=== PATIENT | male | born 1960 | race Caucasian/White ===

== ENCOUNTER 2018-04-02 07:26 | Day surgery (SDC) | payer OTHER ==
[2018-03-31 19:40] VITALS: BMI 35.6
[2018-04-02] MEDS ORDERED: DEXAMETHASONE SOD PHOSPHATE/PF 10 MG/ML SDV ONE (08:55)
[2018-04-02] MEDS ORDERED: BUPIVACAINE HCL/PF 0.5% (5MG/ML) 10 ML VIAL ONE (08:55)
[2018-04-02] MEDS ORDERED: MIDAZOLAM HCL 2 MG/2 ML SINGLE DOSE VIAL ONE ×4 (08:56→10:42)
[2018-04-02] MEDS ORDERED: PROPOFOL 20 ML ONE (09:44)
--- NOTE | 2018-04-02 10:25 | HP ---
[facility] - Chief Complaint Chief Complaint: left shoulder pain - Past Medical History Allergies/Adverse Reactions: Allergies Allergy/AdvReac Type Severity Reaction Status Date / Time meperidine HCl [From Demerol] Allergy Severe Vomiting Verified 04/02/18 07:49 Penicillins AdvReac Severe Verified 04/02/18 07:49 - Current Medications Current Medications: Home Medications Medication Instructions Recorded Esomeprazole Mag Trihydrate 40 mg PO HS #0 capsule.ec 11/27/12 [Nexium] Metformin HCl [Glucophage] 500 mg PO BID 11/05/13 Valsartan/Hydrochlorothiazide 1 combo PO HS 11/12/14 [Diovan Hct 160-25 mg Tablet] Atorvastatin Ca [Lipitor] 40 mg PO DAILY 01/30/18 Aspirin [Aspirin EC] 81 mg PO DAILY 03/31/18 Empagliflozin [Jardiance] 25 mg PO DAILY 03/31/18 Isosorbide Mononitrate [Imdur -] 30 mg PO DAILY 03/31/18 Metoprolol Succinate [Toprol Xl] 50 mg PO DAILY 03/31/18 Prasugrel HCl [Effient] 10 mg PO DAILY 03/31/18 Satellite Physical Exam - Physical Examination Vital Signs: Vital Signs Period Temp Pulse Resp BP Sys/Ospina Pulse Ox Last 24 Hr 98.1 F 64 18 116/68 95 General Appearance: Well Nourished, Well Developed, Alert & Oriented x3 ENT: Clear Lung: Normal air movement Heart: Regular rate & rhythm Extremities: Other (left shoulder- + ttp ,decr rom, + empty can, + neer, + gonzalez,nvi MRI + rct) Neurological: Intact, Alert, Oriented Satellite Impression/Plan - Impression/Plan Impression: left shoulder rct Operative Procedure: left shoulder arthroscopy with LAURA DYER Date to be Performed: 04/02/18
[2018-04-02] MEDS ORDERED: ceFAZolin SODIUM 1 GM VIAL IVPB ONE (10:37)
[2018-04-02] MEDS ORDERED: ceFAZolin SODIUM 1 GM VIAL ONE (10:45)
[2018-04-02] MEDS ORDERED: oxyCODONE HCL 5 MG TABLET PO PRN (10:49)
[2018-04-02] MEDS ORDERED: ONDANSETRON 4 MG/2 ML VIAL IVPUSH PRN (10:49)
[2018-04-02] MEDS ORDERED: DEXAMETHASONE SOD PHOSPHATE 4 MG/1 ML VIAL ONE (10:58)
[2018-04-02] MEDS ORDERED: LACTATED RINGERS SOLUTION 1,000 ML IV SCH (11:00)
[2018-04-02] MEDS ORDERED: hydrALAZINE HCL 20 MG/ML VIAL ONE (11:04)
--- NOTE | 2018-04-02 11:54 | OP ---
Operative Note - Note: Operative Date: 04/02/18 Pre-Operative Diagnosis: L RC TEAR Operation: L RC REPAIR Post-Operative Diagnosis: Same as Pre-op Surgeon: Med Cradona Hoop Bending Machine Operator: Gerard Berg (AND DR PORRAS) Anesthesia: General, Local Estimated Blood Loss (mls): 0 Operative Report Dictated: Yes
--- NOTE | 2018-04-02 12:57 | SPEC ---
DATE OF OPERATION: 04/02/2018 PREOPERATIVE DIAGNOSIS: Left rotator cuff tear. POSTOPERATIVE DIAGNOSIS: Left rotator cuff tear. PROCEDURE: Arthroscopy, left shoulder with subacromial decompression and left rotator cuff repair with SpeedBridge. SURGICAL ATTENDING: Med Cardona MD, Manoj Durant MD ASSOCIATE FINANCIAL PLANNER: IVAN Mitchell ANESTHESIA: Regional and general. CLOSURE: A SpeedBridge for rotator cuff and 3-0 nylon for skin. ESTIMATED BLOOD LOSS: Negligible. COMPLICATIONS: None. CONDITION: To the recovery room in stable condition. DESCRIPTION OF PROCEDURE: The patient was taken to the operating room on April 02, 2018. General and regional anesthesia was administered by the anesthesiologist. IV Kefzol was administered prophylactically prior to the case. The patient was placed in the beach chair position with all prominences well padded. The left shoulder area was prepped and draped in the usual sterile fashion. First, a diagnostic arthroscopy of the glenohumeral joint was made. Posterior portal was made 2 fingerbreadths below the acromion with a 15 blade followed by a blunt trocar. Circumferential exam of the glenohumeral joint revealed the following: Intact labrum circumferentially, intact glenoid and humeral head articular cartilage, intact biceps and biceps anchor, intact subscapularis through its insertion. Looking superiorly, there was a large rotator cuff tear. The fluid was drained from the shoulder, and the trocar was removed. The posterior trocar was redirected in the subacromial space. An accessory lateral and anterior portal were made with a 15 blade followed by a blunt trocar. The lateral portal was used as the working portal. Through this portal, an ArthroCare device was applied. This was used to debride the soft tissue in the subacromial aspect. The coracoacromial ligament was identified and detached off the anterior acromion and was visualized to drop inferiorly and was further debrided. The bone on the undersurface of the acromion was burred to the appropriate level giving appropriate height for the rotator cuff beneath. Looking inferiorly, there was a large rotator cuff tear, soft tissue encasing the rotator cuff, and the deltoid recess was debrided using ArthroCare device and the shaver. The bed on the greater tuberosity was burred to give a good bed for the double row SpeedBridge repair. A grasper was used to ensure that the rotator cuff was able to be reduced sufficiently to the greater tuberosity. The rotator cuff was freed on the bursal and the articular surface to allow more excursion of the tendon. Two anchors preloaded with FiberTape suture were placed on the articular margin, one more anteriorly, one more posteriorly. They were shuttled through the anterior portal with a grasper. Each limb was individually passed through the rotator cuff, two anteriorly and two posteriorly. One anterior limb and one posterior limb was delivered through the lateral portal. They were placed through the eyelet hole of the more lateral anchor, which was then malleted into place much more laterally, reducing the rotator cuff to the greater tuberosity. The swivel was then screwed into place. The sutures were then cut flush with the bone. Next, one anterior and one posterior limb that was remaining were shuttled from the anterior to the lateral portal. The sutures were placed through the eyelet hole of the anterior anchor, which was malleted on the anterior aspect of the greater tuberosity. After tensioning it, it was deployed the entire way and then screwed home giving an excellent reduction to the anterior portion of the rotator cuff. After the sutures were cut, the rotator cuff was probed and found to have good stability with excellent matting down of the rotator cuff to the greater tuberosity. The shoulder was taken through the range of motion and found to have good clearance on the undersurface of the acromion with good, solid repair. The shoulder was drained of the fluid. The portals were closed with 3-0 nylon suture. A sterile pressure dressing followed by a shoulder immobilizer was applied. The patient was awoken from anesthesia and transferred to recovery room in stable condition. No complications. Estimated blood loss negligible. Juliocesar FALLON/[id number]
[2018-04-02 15:29] VITALS: BP 110/60; PULSE 73; TEMP 98
--- NOTE | 2018-04-03 11:23 | PATH ---
Surgical Pathology Report Patient Name: ADELA VIDAL [facility]. Rec. #: [id number] /Age/Gender: 1960 (Age: 58) / M Account: [id number] Location: [facility] SURGICAL Taken: 04/02/2018 Received: 04/02/2018 Reported: 04/03/2018 Physicians: Juliocesar Lora M.D. Specimen(s) Received LEFT SHOULDER SHAVINGS Clinical History Left shoulder tear Final Diagnosis SHOULDER SHAVINGS, LEFT, ARTHROSCOPY: FRAGMENTS OF BENIGN CARTILAGE, DENSE FIBROCONNECTIVE TISSUE, ADIPOSE TISSUE, BONE, AND SKELETAL MUSCLE. Electronically Signed Maria Fernanda Rosenthal M.D. Gross Description Received in formalin, labeled "left shoulder shaving," is a 4.5 x 4.0 x 0.3 cm. aggregate of mcgovern-yellow soft tissue fragments. A direct sales representative portion is submitted in one cassette. /04/02/2018 saudi04/02/2018
== END 2018-04-02 13:15 | disposition home or self-care (01) ==
LOC: JASU-SURG 07:26
PROVIDERS: ATTEND Orthopaedic Surgery
PROC: 0RNK4ZZ Release Left Shoulder Joint, Percutaneous Endoscopic Approach (ICD-10-PCS; principal; 2018-04-02 10:00)
PROC: 0LQ24ZZ Repair Left Shoulder Tendon, Percutaneous Endoscopic Approach (ICD-10-PCS; 2018-04-02 10:00)
DX: M75.102 Unspecified rotator cuff tear or rupture of left shoulder, not specified as traumatic (principal)
CPT/HCPCS: 82962; 88304-TC; 94760

== ENCOUNTER → 2019-10-07 | Day surgery (SDC) | payer OTHER ==
[2019-10-06 10:04] VITALS: BMI 34.0
[~2019-10-07] MED LIST: DEXAMETHASONE SOD PHOSPHATE/PF 10 MG/ML SDV ONE; DEXMEDETOMIDINE HCL 200 MCG/2 ML IVPB ONE; MIDAZOLAM HCL 2 MG/2 ML SINGLE DOSE VIAL ONE; PROPOFOL 20 ML ONE; ROPIVACAINE HCL 0.5% 30ML VIAL ONE; SODIUM CHLORIDE 0.9% P/F 10 ML VIAL IJ ONE; ceFAZolin 2 GRAM PREMIX BAG IVPB ONE; ceFAZolin SODIUM 1 GM VIAL ONE
[2019-10-07 06:54] VITALS: BP 111/70; PULSE 60; TEMP 97.7
--- NOTE | 2019-10-07 07:41 | HP ---
[facility] - Chief Complaint Chief Complaint: left shoulder pain - Past Medical History Allergies/Adverse Reactions: Allergies Allergy/AdvReac Type Severity Reaction Status Date / Time meperidine HCl [From Demerol] Allergy Severe Vomiting Verified 04/02/18 07:49 Penicillins AdvReac Severe Verified 04/02/18 07:49 - Current Medications Current Medications: Home Medications Medication Instructions Recorded Metformin HCl [Glucophage] 500 mg PO BID 11/05/13 Valsartan/Hydrochlorothiazide 1 combo PO HS 11/12/14 [Diovan Hct 160-25 mg Tablet] Atorvastatin Ca [Lipitor] 40 mg PO DAILY 01/30/18 Aspirin [Aspirin EC] 81 mg PO DAILY 03/31/18 Empagliflozin [Jardiance] 25 mg PO DAILY 03/31/18 Isosorbide Mononitrate [Imdur -] 30 mg PO DAILY 03/31/18 Metoprolol Succinate [Toprol Xl] 50 mg PO DAILY 03/31/18 Prasugrel HCl [Effient] 10 mg PO DAILY 03/31/18 Esomeprazole Mag Trihydrate 40 mg PO DAILY 10/06/19 [Nexium] Ezetimibe [Zetia] 10 mg PO DAILY 10/06/19 Losartan Potassium 12.5 mg PO DAILY 10/06/19 Nitroglycerin 0.4 mg SL PRN PRN 10/06/19 Ticagrelor [Brilinta] 90 mg PO BID 10/06/19 Satellite Physical Exam - Physical Examination Vital Signs: Vital Signs Period Temp Pulse Resp BP Sys/Ospina Pulse Ox Last 24 Hr 97.7 F-97.7 F 60-60 20-20 111-111/70-70 97 General Appearance: Well Nourished, Well Developed, Alert & Oriented x3 ENT: Clear Lung: Normal air movement Extremities: Other (left shoulder- + ttp ,decr rom, + empty can, nvi, MRI shows re-tear RC) Neurological: Intact, Alert, Oriented Satellite Impression/Plan - Impression/Plan Impression: left shoulder rct Operative Procedure: left shoulder arthroscopy RCR, removal of hardware Date to be Performed: 10/07/19
== END | disposition home or self-care (01) ==
LOC: JASU-SURG 06:04
PROVIDERS: ATTEND Orthopaedic Surgery
DX: Z53.8 Procedure and treatment not carried out for other reasons (principal)
CPT/HCPCS: 82962

== ENCOUNTER 2020-04-06 07:19 | Day surgery (SDC) | payer OTHER ==
[2020-04-05 11:43] VITALS: BMI 31.9
[2020-04-06] MEDS ORDERED: MIDAZOLAM HCL 2 MG/2 ML SINGLE DOSE VIAL ONE ×2 (09:52→10:32)
[2020-04-06] MEDS ORDERED: GLYCOPYRROLATE 0.2 MG/1 ML VIAL ONE (09:53)
[2020-04-06] MEDS ORDERED: ceFAZolin 2 GRAM PREMIX BAG IVPB ONE (10:45)
[2020-04-06] MEDS ORDERED: METOPROLOL TARTRATE 5 MG/5 ML VIAL ONE (11:01)
[2020-04-06] MEDS ORDERED: ceFAZolin SODIUM 1 GM VIAL ONE ×2 (11:04)
[2020-04-06] MEDS ORDERED: ONDANSETRON 4 MG/2 ML VIAL IVPUSH PRN (11:23)
[2020-04-06] MEDS ORDERED: oxyCODONE HCL 5 MG TABLET PO PRN (11:23)
[2020-04-06] MEDS ORDERED: LACTATED RINGERS SOLUTION 1,000 ML IV SCH (11:30)
[2020-04-06 13:39] VITALS: BP 122/79; PULSE 78; TEMP 97.7
== END 2020-04-06 13:39 | disposition home or self-care (01) ==
LOC: FASU 07:19
PROVIDERS: ATTEND Orthopaedic Surgery
PROC: 0RBK4ZZ Excision of Left Shoulder Joint, Percutaneous Endoscopic Approach (ICD-10-PCS; 2020-04-06)
PROC: 0RCK4ZZ Extirpation of Matter from Left Shoulder Joint, Percutaneous Endoscopic Approach (ICD-10-PCS; 2020-04-06)
PROC: 0LQ24ZZ Repair Left Shoulder Tendon, Percutaneous Endoscopic Approach (ICD-10-PCS; principal; 2020-04-06 10:00)
PROC: 0RHK44Z Insertion of Internal Fixation Device into Left Shoulder Joint, Percutaneous Endoscopic Approach (ICD-10-PCS; 2020-04-06 10:00)
DX: M75.102 Unspecified rotator cuff tear or rupture of left shoulder, not specified as traumatic (principal); T84.89XA Other specified complication of internal orthopedic prosthetic devices, implants and grafts, initial encounter; Y79.1 Therapeutic (nonsurgical) and rehabilitative orthopedic devices associated with adverse incidents; Y92.9 Unspecified place or not applicable
CPT/HCPCS: 82962; 88300-TC; 94760

== ENCOUNTER 2021-09-06 04:24 | Day surgery (SDC) | payer OTHER ==
[2021-09-05 17:59] VITALS: BMI 29.6
[2021-09-06] MEDS ORDERED: PROPOFOL 20 ML ONE ×2 (10:00→10:28)
[2021-09-06] MEDS ORDERED: DEXAMETHASONE SOD PHOSPHATE 4 MG/1 ML VIAL ONE (10:26)
[2021-09-06] MEDS ORDERED: KETOROLAC TROMETHAMINE 30 MG/1 ML VIAL ONE (10:26)
[2021-09-06] MEDS ORDERED: LIDOCAINE HCL 2% 100 MG/5 ML DISP.SYRIN ONE (10:26)
[2021-09-06] MEDS ORDERED: ROPIVACAINE HCL 0.5% 30ML VIAL ONE (10:28)
[2021-09-06] MEDS ORDERED: MIDAZOLAM HCL 2 MG/2 ML SINGLE DOSE VIAL ONE ×2 (10:28)
[2021-09-06] MEDS ORDERED: ceFAZolin SODIUM 1 GM VIAL ONE (10:58)
[2021-09-06] MEDS ORDERED: ePHEDrine SULFATE 50 MG/1 ML AMPULE ONE (11:22)
[2021-09-06] MEDS ORDERED: ONDANSETRON 4 MG/2 ML VIAL IVPUSH PRN (12:10)
[2021-09-06] MEDS ORDERED: oxyCODONE HCL 5 MG TABLET PO PRN ×2 (12:10)
[2021-09-06] MEDS ORDERED: PROMETHAZINE HCL 25 MG/1 ML VIAL IVPUSH PRN (12:10)
[2021-09-06] MEDS ORDERED: LACTATED RINGERS SOLUTION 1,000 ML IV SCH (12:15)
[2021-09-06 13:30] VITALS: PULSE 70
[2021-09-06 14:44] VITALS: BP 127/74; TEMP 97.6
== END 2021-09-06 14:46 | disposition home or self-care (01) ==
LOC: JASU-SURG 04:24
PROVIDERS: ATTEND Orthopaedic Surgery
PROC: 0LU14JZ Supplement Right Shoulder Tendon with Synthetic Substitute, Percutaneous Endoscopic Approach (ICD-10-PCS; 2021-09-06)
PROC: 0RNJ4ZZ Release Right Shoulder Joint, Percutaneous Endoscopic Approach (ICD-10-PCS; 2021-09-06)
PROC: 0LM14ZZ Reattachment of Right Shoulder Tendon, Percutaneous Endoscopic Approach (ICD-10-PCS; principal; 2021-09-06 11:09)
DX: M75.101 Unspecified rotator cuff tear or rupture of right shoulder, not specified as traumatic (principal)
CPT/HCPCS: 82962; 94760